=== PATIENT | male | born 1955 | race Caucasian/White ===

== ENCOUNTER 2023-03-28 10:40 | Day surgery (SDC) | payer MEDICARE, BC ==
[2023-03-25 10:36] VITALS: BMI 29.2
[2023-03-28] MEDS ORDERED: LIDOCAINE 1% (10MG/ML) FOR IV START INTRADERMA PRN (10:56)
[2023-03-28] MEDS ORDERED: LACTATED RINGERS 1,000 ML IV SCH (10:56)
[2023-03-28 11:09] VITALS: TEMP 97.2
[2023-03-28] MEDS ORDERED: PROPOFOL 10 MG/ML 20 ML VIAL IV ONE (12:34)
--- NOTE | 2023-03-28 12:36 | P.GSHP ---
History of Present Illness H&P Date: 03/28/23 Chief Complaint: History of colon polyps. This is a 67-year-old male with previous history of colon polyps. Patient presents today for colonoscopy. Past Medical History Past Medical History: Hyperlipidemia, Pneumonia, Prostate Disorder, Thyroid Disorder Additional Past Medical History / Comment(s): Hx Pneumonia yrs ago. Pain in shoulders and knees. History of Any Multi-Drug Resistant Organisms: None Reported Past Surgical History: Orthopedic Surgery Additional Past Surgical History / Comment(s): Right shoulder surgery, right te nnis elbow surgery, right toe spur removed. Past Anesthesia/Blood Transfusion Reactions: No Reported Reaction Past Psychological History: No Psychological Hx Reported Smoking Status: Never smoker Past Alcohol Use History: Occasional Past Drug Use History: Marijuana Additional Drug Use History / Comment(s): Occasional Marijuana use. Aware no use 24 hrs prior to procedure. - Past Family History Mother Family Medical History: Cancer Medications and Allergies Home Medications Medication Instructions Recorded Confirmed Type Liothyronine Sodium [Cytomel] 5 mcg PO QAM 05/27/16 03/28/23 History Montelukast [Singulair] 10 mg PO DAILY PRN 05/27/16 03/28/23 History Tamsulosin [Flomax] 0.4 mg PO HS 05/27/16 03/28/23 History Atorvastatin [Lipitor] 20 mg PO HS 03/25/23 03/28/23 History Levothyroxine Sodium [Synthroid] 137 mcg PO QAM 03/25/23 03/28/23 History Loratadine 10 mg PO DAILY PRN 03/25/23 03/28/23 History Meloxicam [Mobic] 15 mg PO DAILY PRN 03/25/23 03/25/23 History Multivitamin/Iron/Folic Acid 1 each PO DAILY 03/25/23 03/25/23 History [Centrum Adults Tablet] Allergies Allergy/AdvReac Type Severity Reaction Status Date / Time lactose Allergy Intermediate Unknown Verified 03/28/23 11:02 Surgical - Exam Vital Signs Temp Pulse Resp BP Pulse Ox 97.2 F L 56 L 18 148/69 95 03/28/23 11:06 03/28/23 11:06 03/28/23 11:06 03/28/23 11:06 03/28/23 11:06 - General well developed, well nourished, no distress - Eyes PERRL - ENT normal pinna - Neck no masses - Respiratory normal expansion - Cardiovascular Rhythm: regular - Abdomen Abdomen: soft, non tender Assessment and Plan Assessment: History: Polyps. We'll perform colonoscopy.
--- NOTE | 2023-03-28 12:46 | P.OP ---
Date of Procedure: 03/28/23 Preoperative Diagnosis: History of colon Polyps Postoperative Diagnosis: Diverticulosis Procedure(s) Performed: Colonoscopy Anesthesia: MAC Surgeon: Fadi Hsu Pathology: none sent Condition: stable Disposition: PACU Description of Procedure: The patient's placed on the endoscopy table in the lateral position. He received IV sedation. Digital rectal exam was performed. This revealed no abnormalities. Flexible colonoscope was then placed patient anus and passed throughout the entire colon. Ileocecal valve was visualized. The cecum, ascending and transverse colon appeared normal. In the descending and sigmoid: There was mild diverticular changes. Scope was then brought back the rectum t his appeared normal. Scope withdrawn for patient.
[2023-03-28 13:03] VITALS: BP 118/67; PULSE 62; RESP 18
== END 2023-03-28 13:23 | disposition home or self-care (01) ==
LOC: ORWHC2ENDO 10:40
PROVIDERS: ATTEND Surgery
DX: Z12.11 Encounter for screening for malignant neoplasm of colon (principal); K57.30 Diverticulosis of large intestine without perforation or abscess without bleeding; E78.5 Hyperlipidemia, unspecified; E07.9 Disorder of thyroid, unspecified; F10.90 Alcohol use, unspecified, uncomplicated; F12.90 Cannabis use, unspecified, uncomplicated; Z86.010 Personal history of colon polyps; Z80.8 Family history of malignant neoplasm of other organs or systems; Z98.890 Other specified postprocedural states; Z79.890 Hormone replacement therapy; Z79.899 Other long term (current) drug therapy; Z88.8 Allergy status to other drugs, medicaments and biological substances
CPT/HCPCS: J2704; G0105; 45378

== ENCOUNTER → 2023-09-01 | Outpatient (CLI) | payer MEDICARE, BC ==
--- NOTE | 2023-09-02 08:28 | CTL ---
EXAMINATION TYPE: CT Low Dose Lung DATE OF EXAM ORDERED: 09/01/2023 HISTORY: . Lung cancer screening CT DLP: 76.[address] CTDI: 2.2 mGy Automated exposure control for dose reduction was used. SCREENING VISIT: COMPARISON: None TECHNIQUE: Low dose computed tomography scan was performed through the chest at 1 mm thick sections a nd reconstructed images in multiple planes at 1 mm and [address] DIAGNOSTIC QUALITY: Satisfactory FINDINGS: Mild emphysematous changes. No consolidated pneumonia or pleural effusion. No pneumothorax. No eviden ce of heart failure. No sizable pulmonary nodule. Mild basilar bronchiectasis. Aorta of normal caliber with mild atherosclerotic change. Heart size upper limits of normal. Trace pe ricardial fluid. There is a small hiatal hernia. Multilevel hypertrophic degenerative change of the spine. IMPRESSION: 1. Mild COPD. 2. Small hiatal hernia. Distal esophageal wall can be associated with reflux esophagitis. Correlate c linically. CT LUNG RAD AND CT CHEST RECOMMENDATION: Lung-Rad 1 Negative: Continue annual screening with LDCT in 12 months.
== END | disposition home or self-care (01) ==
LOC: RADCTMAIN 18:42
PROVIDERS: ATTEND Family Medicine
DX: Z12.2 Encounter for screening for malignant neoplasm of respiratory organs (principal); F17.210 Nicotine dependence, cigarettes, uncomplicated; J44.9 Chronic obstructive pulmonary disease, unspecified; K44.9 Diaphragmatic hernia without obstruction or gangrene; K21.00 Gastro-esophageal reflux disease with esophagitis, without bleeding
CPT/HCPCS: 71271